=== PATIENT | female | born 1945 | race African-American/Black ===

== ENCOUNTER 2017-03-05 14:53 | Emergency (ER) | payer MEDICARE, BC, MEDICAID ==
[~2017-03-05] VITALS: Ht 165.1 cm; Wt 76.0 kg
[~2017-03-05 14:53] MED LIST: AMLODIPINE PO; ASPI-1159 PO; BONIVA PO; DIOVAN PO; FIBER GUMMIES PO; LIP40 PO; NEXIUM PO; OXYB15TA9 PO; SPIR50TA26 PO
[2017-03-05] MEDS ORDERED: TRAMADOL 50MG TABLET PO ONE (18:00)
[2017-03-05 18:50] VITALS: BP 117/65
[2017-03-06] MEDS ORDERED: DEXT 5%/0.45% NACL 1000ML 1,000 ML IV SCH (00:24)
[2017-03-06] MEDS ORDERED: CLONIDINE 0.1MG TABLET PO PRN (00:30)
[2017-03-06] MEDS ORDERED: ONDANSETRON HCL 4MG/2ML VIAL IV PRN (00:30)
[2017-03-06] MEDS ORDERED: MORPHINE SULFATE 2 MG/ML CPJ (NOT FOR IM USE) IV PRN (00:30)
[2017-03-06] MEDS ORDERED: ENOXAPARIN 40MG/0.4ML SYR SUBCUT SCH (00:30)
[2017-03-06] MEDS ORDERED: ACETAMINOPHEN 325MG TABLET PO PRN (00:30)
== END 2017-03-05 20:00 | disposition home or self-care (01) ==
LOC: ER 18:42
DX: M79.672 Pain in left foot (principal); I10 Essential (primary) hypertension; G80.9 Cerebral palsy, unspecified; Z88.6 Allergy status to analgesic agent; Z88.2 Allergy status to sulfonamides; Z79.82 Long term (current) use of aspirin
CPT/HCPCS: 73630; 99284

== ENCOUNTER 2017-09-07 05:00 | Emergency (ER) | payer MEDICARE, BC, MEDICAID ==
[~2017-09-07] VITALS: Ht 165.1 cm; Wt 77.0 kg
[2017-09-07] MEDS ORDERED: SODIUM CHLORIDE 0.9% 1,000 ML IV ONE (06:30)
[2017-09-07 06:55] LABS: BASOPHILS % 0.6 % (0.0-2.0); HEMATOCRIT. 34.1 % (36.0-48.0); HEMOGLOBIN. 11.2 g/dL (12.0-16.0); LYMPHOCYTES % 25.2 % (20.0-50.0); MEAN CORPUSCULAR HEMOGLOBIN 30.5 pg (28.0-32.0); MEAN CORPUSCULAR VOLUME 92.7 fL (81.0-99.0); MEAN PLATELET VOLUME 8.5 fl (7.4-10.4); MONOCYTES % 8.1 % (2.0-8.0); NEUTROPHILS % 66.1 % (40.0-76.0); PLATELET 219 x1000/uL (130-400); RED BLOOD CELL COUNT 3.67 mill/uL (4.2-5.4); RED CELL DISTRIBUTION WIDTH 14.7 % (11.6-14.6)
[2017-09-07] MEDS ORDERED: MECLIZINE 25MG TABLET PO ONE (07:00)
[2017-09-07 07:10] LABS: INR 0.9; PROTHROMBIN TIME 9.9 sec (9.4-11.6)
[2017-09-07 07:14] LABS: TROPONIN I < 0.02 ng/mL (0.00-0.04)
[2017-09-07 07:16] LABS: CHLORIDE 107 mEq/L (98-107)
[2017-09-07 08:48] LABS: CLARITY URINE CLEAR (CLEAR); COLOR URINE YELLOW (YELLOW); KETONES URINE NEGATIVE (NEGATIVE); LEUKOCYTE ESTERASE URINE 1+ (NEGATIVE); NITRITE URINE NEGATIVE (NEGATIVE); OCCULT BLOOD URINE NEGATIVE (NEGATIVE); PROTEIN URINE NEGATIVE (NEGATIVE); SPECIFIC GRAVITY URINE 1.009 (1.005-1.030); UROBILINOGEN URINE 0.2 E.U./dL (0.2-1.0)
[2017-09-07] MEDS ORDERED: KETOROLAC 30MG/ML VIAL IV ONE (09:30)
[2017-09-07] MEDS ORDERED: IOHEXOL-350 100 ML BOTTLE ONE (11:00)
[2017-09-07 12:06] VITALS: BP 130/60
== END 2017-09-07 12:09 | disposition home or self-care (01) ==
LOC: ER 05:00
DX: R42 Dizziness and giddiness (principal); R51 Headache; I10 Essential (primary) hypertension; R79.1 Abnormal coagulation profile; R53.1 Weakness; E78.5 Hyperlipidemia, unspecified; I47.2 Ventricular tachycardia; M31.6 Other giant cell arteritis; Z79.82 Long term (current) use of aspirin; Z88.2 Allergy status to sulfonamides; Z88.5 Allergy status to narcotic agent
CPT/HCPCS: 36415; 70496; 70498; 80053; 81003; 83605; 83880; 84484; 85025; 85610; 93005; 96374; 99285; J1885; J7030; Q9967; J8597

== ENCOUNTER 2017-11-04 15:46 | Emergency (ER) | payer MEDICARE, BC ==
[~2017-11-04] VITALS: Ht 165.1 cm; Wt 77.0 kg
[2017-11-04 16:50] LABS: BASOPHILS % 0.4 % (0.0-2.0); EOSINOPHILS % 0.4 % (0.0-5.0); HEMOGLOBIN. 11.6 g/dL (12.0-16.0); LYMPHOCYTES % 11.7 % (20.0-50.0); MEAN CORPUSCULAR HEMOGLOBIN 31.7 pg (28.0-32.0); MEAN PLATELET VOLUME 8.8 fl (7.4-10.4); MONOCYTES % 4.6 % (2.0-8.0); NEUTROPHILS % 82.9 % (40.0-76.0); PLATELET 172 x1000/uL (130-400); RED BLOOD CELL COUNT 3.66 mill/uL (4.2-5.4); RED CELL DISTRIBUTION WIDTH 13.8 % (11.6-14.6)
[2017-11-04 16:55] LABS: CHLORIDE 108 mEq/L (98-107)
[2017-11-04 17:01] LABS: PROTHROMBIN TIME 10.1 sec (9.4-11.6)
[2017-11-04 18:09] LABS: CLARITY URINE CLEAR (CLEAR); COLOR URINE YELLOW (YELLOW); KETONES URINE NEGATIVE (NEGATIVE); LEUKOCYTE ESTERASE URINE NEGATIVE (NEGATIVE); NITRITE URINE NEGATIVE (NEGATIVE); OCCULT BLOOD URINE NEGATIVE (NEGATIVE); PH URINE 7.5 (4.5-8.0); PROTEIN URINE NEGATIVE (NEGATIVE); SPECIFIC GRAVITY URINE 1.016 (1.005-1.030)
[2017-11-04] MEDS ORDERED: TRAMADOL 50MG TABLET PO ONE (18:45)
[2017-11-04 20:35] VITALS: BP 128/64
== END 2017-11-04 21:09 | disposition home or self-care (01) ==
LOC: ER 16:50
DX: M25.562 Pain in left knee (principal); R60.9 Edema, unspecified; G80.9 Cerebral palsy, unspecified; I10 Essential (primary) hypertension; M17.12 Unilateral primary osteoarthritis, left knee; Z88.2 Allergy status to sulfonamides; Z88.5 Allergy status to narcotic agent; Z79.82 Long term (current) use of aspirin
CPT/HCPCS: 36415; 71045; 73562; 80053; 81003; 83880; 84484; 85025; 85610; 85730; 93005; 93970; 99285

== ENCOUNTER 2018-08-12 10:09 | Day surgery (SDC) | payer BC ==
[~2018-08-12] VITALS: Ht 162.6 cm; Wt 73.0 kg
[~2018-08-12 10:09] MED LIST changes: -SPIR50TA26 PO; +SPIR50TA5 PO
[2018-08-12] MEDS ORDERED: IRBE150T27 MT (11:01)
[2018-08-12 11:42] LABS: HEMATOCRIT 31.4 % (36.0-48.0); HEMOGLOBIN 10.4 g/dL (12.0-16.0); MEAN CORPUSCULAR VOLUME 90.6 fL (81.0-99.0); PLATELET 145 x1000/uL (130-400); RED BLOOD CELL COUNT 3.46 mill/uL (4.2-5.4); RED CELL DISTRIBUTION WIDTH 14.3 % (11.6-14.6)
[2018-08-12 11:51] LABS: CHLORIDE 111 mEq/L (98-107)
[2018-08-12] MEDS ORDERED: IODIXANOL 320MG/ML 100 ML BOTTLE IV ONE (13:16)
[2018-08-12] MEDS ORDERED: LIDOCAINE HCL 1% 20ML VIAL (Pyxis) INJ ONE (13:17)
[2018-08-12] MEDS ORDERED: MIDAZOLAM HCL 2 MG/2 ML VIAL ONE (13:18)
[2018-08-12] MEDS ORDERED: FENTANYL CITRATE/PF 50MCG/ML 2ML VIAL ONE (13:18)
[2018-08-12] MEDS ORDERED: ACETAMINOPHEN 325MG TABLET PO PRN (14:00)
[2018-08-12] MEDS ORDERED: ONDANSETRON HCL 4MG/2ML INJ IV PRN (14:00)
[2018-08-12] MEDS ORDERED: MORPHINE SULFATE 4 MG/ML CPJ (NOT FOR IM USE) IV PRN (14:00)
[2018-08-12] MEDS ORDERED: HEPARIN SODIUM 1,000 UNIT/1ML VIAL IV ONE (14:57)
== END 2018-08-12 17:30 | disposition home or self-care (01) ==
LOC: CCL 10:09
PROVIDERS: ATTEND Internal Medicine Cardiovascular Disease
DX: R94.39 Abnormal result of other cardiovascular function study (principal); I10 Essential (primary) hypertension; E78.5 Hyperlipidemia, unspecified
CPT/HCPCS: 36415; 80048; 85027; 93005; 93458; C1769; C1887; C1893; J1644; J2250; J2405; J3010; J3490; Q9967

== ENCOUNTER → 2020-02-03 | Outpatient (CLI) | payer BC, MEDICAID ==
[~2020-02-03] MED LIST changes: -ASPI-1159 PO; -BONIVA PO; -DIOVAN PO; +IRBE150T24 MT
== END | disposition home or self-care (01) ==
LOC: CT 09:00
PROVIDERS: ATTEND Internal Medicine Cardiovascular Disease
DX: K57.90 Diverticulosis of intestine, part unspecified, without perforation or abscess without bleeding (principal); D25.9 Leiomyoma of uterus, unspecified; M47.817 Spondylosis without myelopathy or radiculopathy, lumbosacral region; I73.9 Peripheral vascular disease, unspecified
CPT/HCPCS: 74176

== ENCOUNTER 2020-12-08 21:54 | Emergency (ER) | payer BC, MEDICAID ==
[~2020-12-08] VITALS: Ht 162.6 cm; Wt 79.0 kg
[2020-12-08] MEDS ORDERED: MAGNESIUM/ALUMINUM HYDROXIDE/SIMETHICONE 30ML UDC PO STA (22:53)
[2020-12-08] MEDS ORDERED: VISCOUS LIDOCAINE 2% 15 ML UDC PO STA (22:53)
[2020-12-08] MEDS ORDERED: ACETAMINOPHEN 325MG TABLET PO STA (22:53)
[2020-12-08] MEDS ORDERED: ONDANSETRON HCL 4MG/2ML INJ IV STA (22:53)
[2020-12-08 23:00] LABS: BASOPHILS % 0.4 % (0.0-2.0); EOSINOPHILS % 0.1 % (0.0-5.0); HEMOGLOBIN. 12.4 g/dL (12.0-16.0); LYMPHOCYTES % 21.9 % (20.0-50.0); MEAN CORPUSCULAR HEMOGLOBIN 30.5 pg (28.0-32.0); MEAN CORPUSCULAR VOLUME 91.3 fL (81.0-99.0); MEAN PLATELET VOLUME 9.6 fl (7.4-10.4); MONOCYTES % 5.9 % (2.0-8.0); NEUTROPHILS % 71.7 % (40.0-76.0); PLATELET 192 x1000/uL (130-400); RED BLOOD CELL COUNT 4.05 mill/uL (4.2-5.4); RED CELL DISTRIBUTION WIDTH 14.1 % (11.6-14.6)
[2020-12-08] MEDS ORDERED: FAMOTIDINE 20MG/2ML VIAL IV ONE (23:00)
[2020-12-08 23:08] LABS: CHLORIDE 106 mEq/L (98-107)
[2020-12-09 03:00] VITALS: BP 119/87
== END 2020-12-09 03:33 | disposition home or self-care (01) ==
LOC: ER 21:54
DX: R07.89 Other chest pain (principal); R51.9 Headache, unspecified; Z88.2 Allergy status to sulfonamides; Z88.5 Allergy status to narcotic agent; I10 Essential (primary) hypertension; Z98.890 Other specified postprocedural states
CPT/HCPCS: 36415; 71045; 80053; 83690; 83880; 84484; 85025; 93005; 96374; 96375; 99285; J2405; J3490

== ENCOUNTER 2023-07-23 09:52 | Emergency (ER) | payer BC, MEDICAID ==
[~2023-07-23] VITALS: Ht 165.1 cm; Wt 68.0 kg
[2023-07-23 09:55] VITALS: O2SAT 98
[2023-07-23 11:00] VITALS: BP 131/65; PULSE 48; RESP 17
[2023-07-23] MEDS ORDERED: ACETAMINOPHEN 500MG TABLET PO ONE (13:00)
[2023-07-23 13:34] VITALS: TEMP 98.4
== END 2023-07-23 14:06 | disposition home or self-care (01) ==
LOC: ER 09:52
DX: I16.0 Hypertensive urgency (principal); I10 Essential (primary) hypertension; Z79.899 Other long term (current) drug therapy
CPT/HCPCS: 99283

== ENCOUNTER 2024-03-26 00:18 | Emergency (ER) | payer BC, MEDICAID ==
[~2024-03-26] VITALS: Ht 160 cm; Wt 73.0 kg
[~2024-03-26 00:18] MED LIST changes: -IRBE150T24 MT; +IRBE150T34 MT
[2024-03-26 00:25] VITALS: O2SAT 99
[2024-03-26 03:17] LABS: BASOPHILS % 0.5 % (0.0-2.0); EOSINOPHILS % 0.6 % (0.0-5.0); HEMATOCRIT. 31.1 % (36.0-48.0); HEMOGLOBIN. 10.4 g/dL (12.0-16.0); LYMPHOCYTES % 32.8 % (20.0-50.0); MEAN CORPUSCULAR HEMOGLOBIN 32.6 pg (28.0-32.0); MEAN CORPUSCULAR HGB CONC 33.3 g/dL (31.0-37.0); MEAN PLATELET VOLUME 10.2 fl (7.4-10.4); MONOCYTES % 7.8 % (2.0-8.0); NEUTROPHILS % 58.3 % (40.0-76.0); PLATELET 116 x1000/uL (130-400); RED BLOOD CELL COUNT 3.17 mill/uL (4.2-5.4); RED CELL DISTRIBUTION WIDTH 14.7 % (11.6-14.6); WHITE BLOOD COUNT 5.3 x1000/uL (4.5-11.0)
[2024-03-26 03:25] LABS: CHLORIDE 110 mEq/L (98-107); POTASSIUM 4.4 mEq/L (3.5-5.1); SODIUM 142 mEq/L (136-145)
[2024-03-26 03:26] LABS: CARBON DIOXIDE 27 mEq/L (21-32)
[2024-03-26 03:27] LABS: CALCIUM 9.5 mg/dL (8.7-10.4)
[2024-03-26 03:31] LABS: GLUCOSE 90 mg/dL (70-105)
[2024-03-26 03:32] LABS: UREA NITROGEN BLOOD 17 mg/dL (9-23)
[2024-03-26 03:33] LABS: TROPONIN I HIGH SENSITIVITY 14 ng/L (3.0-34)
[2024-03-26 05:15] VITALS: BP 148/15; PULSE 42; RESP 14; TEMP 36.78072; O2SAT 98
== END 2024-03-26 05:15 | disposition home or self-care (01) ==
LOC: ER 00:18
DX: I10 Essential (primary) hypertension (principal); Z88.2 Allergy status to sulfonamides; Z88.5 Allergy status to narcotic agent; Z79.899 Other long term (current) drug therapy; Z98.890 Other specified postprocedural states
CPT/HCPCS: 36415; 80048; 84484; 85025; 93005; 99285

== ENCOUNTER 2024-05-31 15:35 | Emergency (ER) | payer BC ==
[~2024-05-31] VITALS: Ht 172.7 cm; Wt 68.0 kg
[2024-05-31 15:40] VITALS: TEMP 97.6; O2SAT 99
[2024-05-31 17:47] LABS: HEMOGLOBIN. 11.5 g/dL (12.0-16.0)
[2024-05-31 17:48] LABS: CHLORIDE 110 mEq/L (98-107); POTASSIUM 4.8 mEq/L (3.5-5.1); SODIUM 142 mEq/L (136-145)
[2024-05-31 17:49] LABS: BASOPHILS % 0.8 % (0.0-2.0); CARBON DIOXIDE 24 mEq/L (21-32); EOSINOPHILS % 0.4 % (0.0-5.0); LYMPHOCYTES % 25.2 % (20.0-50.0); MEAN CORPUSCULAR HEMOGLOBIN 32.6 pg (28.0-32.0); MEAN CORPUSCULAR HGB CONC 32.7 g/dL (31.0-37.0); MEAN CORPUSCULAR VOLUME 99.5 fL (81.0-99.0); MEAN PLATELET VOLUME 10.1 fl (7.4-10.4); MONOCYTES % 6.6 % (2.0-8.0); PLATELET 184 x1000/uL (130-400); RED BLOOD CELL COUNT 3.52 mill/uL (4.2-5.4); RED CELL DISTRIBUTION WIDTH 15.3 % (11.6-14.6); WHITE BLOOD COUNT 5.6 x1000/uL (4.5-11.0)
[2024-05-31 17:50] LABS: CALCIUM 9.7 mg/dL (8.7-10.4)
[2024-05-31 17:54] LABS: CREATININE 1.1 mg/dL (0.6-1.0); GLUCOSE 113 mg/dL (70-105); UREA NITROGEN BLOOD 20 mg/dL (9-23)
[2024-05-31 17:55] LABS: TROPONIN I HIGH SENSITIVITY 8 ng/L (3.0-34)
[2024-05-31 18:43] VITALS: BP 136/80; PULSE 70; RESP 16; O2SAT 99
[2024-05-31] MEDS: MECLIZINE 25MG TABLET PO ONE (18:43)
== END 2024-05-31 18:45 | disposition home or self-care (01) ==
LOC: ER 15:35
DX: B34.9 Viral infection, unspecified (principal); F19.90 Other psychoactive substance use, unspecified, uncomplicated; I10 Essential (primary) hypertension; Z79.899 Other long term (current) drug therapy; Z88.2 Allergy status to sulfonamides; Z88.5 Allergy status to narcotic agent; Z20.822 Contact with and (suspected) exposure to COVID-19
CPT/HCPCS: 99285; 71045; 87426; 80048; 85025; 84484; 36415; 93005; J8597

== ENCOUNTER 2025-02-06 03:47 | Emergency (ER) | payer BC ==
[~2025-02-06] VITALS: Ht 162.6 cm; Wt 68.0 kg
[2025-02-06 03:59] VITALS: O2SAT 97
[2025-02-06 05:06] LABS: BASOPHILS % 0.7 % (0.0-2.0); EOSINOPHILS % 1.1 % (0.0-5.0); HEMATOCRIT. 29.4 % (36.0-48.0); HEMOGLOBIN. 9.9 g/dL (12.0-16.0); LYMPHOCYTES % 16.4 % (20.0-50.0); MEAN PLATELET VOLUME 10.0 fl (7.4-10.4); MONOCYTES % 10.9 % (2.0-8.0); NEUTROPHILS % 70.9 % (40.0-76.0); PLATELET 78 x1000/uL (130-400); RED BLOOD CELL COUNT 3.02 mill/uL (4.2-5.4); RED CELL DISTRIBUTION WIDTH 16.0 % (11.6-14.6)
[2025-02-06 05:22] LABS: CREATININE 0.9 mg/dL (0.6-1.0); UREA NITROGEN BLOOD 12 mg/dL (9-23)
[2025-02-06 06:45] LABS: INFLUENZA TYPE A Presumptive Negative (Pres. Neg.); INFLUENZA TYPE B Presumptive Negative (Pres. Neg.); RESPIRATORY SYNCYTIAL VIRUS Not Detected (Not Detectd)
[2025-02-06 08:12] LABS: TROPONIN I HIGH SENSITIVITY 9 ng/L (3.0-34)
[2025-02-06 08:13] LABS: ASPARTATE AMINOTRANSFERASE 24 IU/L (<34); BILIRUBIN DIRECT 0.1 mg/dL (<=3.0); BILIRUBIN TOTAL 0.5 mg/dL (0.1-1.0); PROTEIN TOTAL 6.3 g/dL (6.0-8.3)
[2025-02-06] MEDS ORDERED: AMOX1TAB16 MT (08:48)
[2025-02-06 09:04] VITALS: BP 140/51; PULSE 64; RESP 11; TEMP 36.9; O2SAT 99
== END 2025-02-06 09:15 | disposition home or self-care (01) ==
LOC: ER 03:47
DX: J20.9 Acute bronchitis, unspecified (principal); I10 Essential (primary) hypertension; R06.02 Shortness of breath; Z20.822 Contact with and (suspected) exposure to COVID-19; Z88.2 Allergy status to sulfonamides; Z88.5 Allergy status to narcotic agent; Z79.899 Other long term (current) drug therapy; Z98.890 Other specified postprocedural states
CPT/HCPCS: 36415; 71045; 80048; 80076; 83880; 84484; 85025; 87420; 87804; 93005; 99285; A4606